=== PATIENT | female | born 1985 | race Caucasian/White ===

== ENCOUNTER 2024-02-12 16:45 | Emergency (ER) | payer BC ==
[~2024-02-12] VITALS: Ht 167.6 cm; Wt 128.4 kg
[2024-02-12 17:22] LABS: Basophils # (auto) 0.1 10 ^3/uL (0-0.2); Basophils % (auto) 0.9 % (0.0-2.0); Eosinophils # (auto) 0 10 ^3/uL (0-0.8); Eosinophils % (auto) 0.1 % (0.0-7.0); Hematocrit 43.2 % (36.0-46.0); Hemoglobin 14.3 g/dL (12.2-16.2); Lymphocytes % (auto) 20.9 % (10.0-50.0); Mean Corpuscular Hemoglobin 28.1 pg (28.0-32.0); Mean Corpuscular Hgb Conc. 33.1 g/dL (32.0-36.0); Mean Corpuscular Volume 84.8 fL (80.0-100.0); Monocytes # (auto) 0.8 10 ^3/uL (0-1.3); Monocytes % (auto) 5.8 % (0.0-12.0); Neutrophils # (auto) 10.5 10 ^3/uL (1.6-8.6); Neutrophils % (auto) 72.3 % (37.0-80.0); Platelet Count (auto) 382 10^3/uL (140-450); Red Blood Cells 5.09 10^6/uL (4.0-5.20); Red Cell Distribution Width 13.9 % (11.8-14.3); White Blood Cell 14.6 10^3/uL (4.4-10.8)
[2024-02-12 17:35] LABS: Chloride 107 mmol/L (98-107); Sodium 138 mmol/L (136-145)
[2024-02-12 17:36] LABS: Anion Gap 9 (5-15); Carbon Dioxide 22 mmol/L (20-31)
[2024-02-12 17:41] LABS: Glucose 150 mg/dL (74-106)
[2024-02-12 17:42] LABS: Blood Urea Nitrogen 9 mg/dL (9-23)
[2024-02-12] MEDS: LORazepam 0.5 MG TAB PO ONE (18:04)
[2024-02-12 20:54] VITALS: BP 135/66; PULSE 81; RESP 18; TEMP 97.9; O2SAT 97
== END 2024-02-12 20:54 | disposition home or self-care (01) ==
LOC: ER 16:45
DX: R07.89 Other chest pain (principal); F41.9 Anxiety disorder, unspecified; E11.9 Type 2 diabetes mellitus without complications
CPT/HCPCS: 36415; 71046; 80048; 84484; 85025; 93005